=== PATIENT | male | born 1965 | race Caucasian/White ===

== ENCOUNTER 2018-03-09 10:00 | Inpatient (IN) | payer OTHER ==
[2018-03-09 10:58] VITALS: BMI 27.4
--- NOTE | 2018-03-09 12:18 | HP ---
CIWA Score - CIWA Score Nausea/Vomitin-Mild Nausea/No Vomiting (NAUSEA/DIARRHEA) Muscle Tremors: 4-Moderate,w/Arms Extend Anxiety: 4-Mod. Anxious/Guarded Agitation: 4-Moderately Restless Paroxysmal Sweats: 1-Minimal Palms Moist Orientation: 0-Oriented Tacttile Disturbances: 3-Moderate Itch/Numb/Burn (HX NEUROPATHY) Auditory Disturbances: 0-None Visual Disturbances: 1-Very Mild Sensitivity Headache: 0-None Present CIWA-Ar Total Score: 18 Admission ROS S - HPI Chief Complaint: ALCOHOL AND BENZO WITHDRAWAL SX Allergies/Adverse Reactions: Allergies Allergy/AdvReac Type Severity Reaction Status Date / Time No Known Allergies Allergy Verified 03/09/18 11:06 History of Present Illness: 52 Y/O H/MALE WITH A HX KLONOPIN, ALCOHOL AND COCAINE DEPENDENCE SEEKING DETOX TX. PT REPORTS HE HAS RX FOR KLONOPIN AND ALSO BUYS THEM ON THE STREETS. PT IS ON S.T.A. R.T.-MMTP WITH METHADONE 160 MG PO DAILY AND REPORTS LAST DOSED TODAY. DOSE NEEDS VERIFICATION. Exam Limitations: No Limitations - Ebola screening Have you traveled outside of the country in the last 21 days: No (N) Have you had contact with anyone from an Ebola affected area: No Have you been sick,other than usual withdrawal symptoms: No Do you have a fever: No - Review of Systems Constitutional: Loss of Appetite, Changes in sleep EENT: reports: Dental Problems (TEETH IN POOR REPAIR; MISSING TEETH) Respiratory: reports: Shortness of Breath (HX ASTHMA), Wheezing Cardiac: reports: Lightheadedness GI: reports: Constipated (OIC), Diarrhea, Nausea, Poor Fluid Intake, Vomiting : reports: No Symptoms Reported Musculoskeletal: reports: Back Pain, Joint Pain, Muscle Pain Integumentary: reports: No Symptoms Reported Neuro: reports: Headache, Numbness (LOWER EXTREMITIES-HX OF NEUROPATHY), Tingling, Dizziness Endocrine: reports: No Symptoms Reported Hematology: reports: No Symptoms Reported Psychiatric: reports: Orientated x3, Anxious, Depressed, other (INSOMNIA) Other Systems: Reviewed and Negative Patient History - Patient Medical History Hx Anemia: No Hx Asthma: Yes (MDI) Hx Chronic Obstructive Pulmonary Disease (COPD): No Hx Cardiac Disorders: No Hx Hypertension: No Hx Hypercholesterolemia: No HX Cerebrovascular Accident: No Hx Seizures: No Hx Diabetes: No Hx Gastrointestinal Disorders: No Hx Genitourinary Disorders: No Hx Sexually Transmitted Disorders: No (DENIES) Hx Renal Disease (ESRD): No Hx Thyroid Disease: No Hx Human Immunodeficiency Virus (HIV): No (NEGATIVE HX) Hx Hepatitis C: No (DENIES) Hx Depression: Yes Hx Suicide Attempt: Yes (Tried to overdose at age 12 yrs old; DENIES S/H/I) Hx Bipolar Disorder: No Hx Schizophrenia: No Other Medical History: ANXIETY/INSOMNIA HX - Patient Surgical History Past Surgical History: No Hx Neurologic Surgery: No Hx Cataract Extraction: No Hx Cardiac Surgery: No Hx Lung Surgery: No Hx Breast Surgery: No Hx Breast Biopsy: No Hx Abdominal Surgery: No Hx Appendectomy: No Hx Cholecystectomy: No Hx Genitourinary Surgery: No Hx Orthopedic Surgery: No Hx Hysterectomy: No Anesthesia Reaction: No - PPD History Previous Implant?: Yes Documented Results: Negative w/o proof Implanted On Prior [facility] Admission?: No Results: TBD PPD to be Administered?: Yes - Reproductive History Patient is a Female of Child Bearing Age (11 -55 yrs old): No (MALE) - Smoking Cessation Smoking history: Current every day smoker Have you smoked in the past 12 months: Yes Aproximately how many cigarettes per day: 60 Hx Chewing Tobacco Use: No Initiated information on smoking cessation: Yes 'Breaking Loose' booklet given: 03/09/18 - Substance & Tx. History Hx Alcohol Use: Yes (RUM) Hx Substance Use: Yes (KLONOPIN/CRACK) Hx Substance Use Treatment: No (FIRST TIME) - Substances Abused Alcohol Route: Oral Frequency: Daily Amount used: 2 PINTS RUM Age of first use: 11 Date of Last Use: 03/09/18 Benzodiazepine (Klonopin) Route: Oral Frequency: Daily Amount used: 4MG Age of first use: 11 Date of Last Use: 03/08/18 Crack Route: Smoking Frequency: Daily Amount used: $100-150 Age of first use: 12 Date of Last Use: 03/08/18 Family Disease History - Family Disease History Family Disease History: Diabetes: Grandparent (HTN) Admission Physical Exam [facility] - Vital Signs Vital Signs: Vital Signs - 24 hr 03/09/18 10:55 Temperature 99.3 F Pulse Rate 75 Respiratory 20 Rate Blood Pressure 173/94 - Physical General Appearance: Yes: Moderate Distress, Irritable, Anxious HEENTM: Yes: EOMI, Normocephalic, MONICA, Pharynx Normal Respiratory: Yes: Chest Non-Tender, Lungs Clear, Normal Breath Sounds, No Respiratory Distress Neck: Yes: No masses,lesions,Nodules, Supple, Trachea in good position Breast: Yes: Breast Exam Deferred Cardiology: Yes: Regular Rhythm, Regular Rate, S1, S2 Abdominal: Yes: Normal Bowel Sounds, Non Tender, Soft Genitourinary: Yes: Other (N/C) Back: Yes: Within Normal Limits Musculoskeletal: Yes: full range of Motion, Gait Steady Extremities: Yes: Normal Range of Motion, Non-Tender Neurological: Yes: lead pressman II-XII NML intact, Fully Oriented, Alert, Motor Strength 5/5 Integumentary: Yes: Dry, Warm Lymphatic: Yes: Within Normal Limits - Diagnostic (1) Alcohol dependence with uncomplicated withdrawal Current Visit: Yes Status: Acute (2) Methadone maintenance therapy patient Current Visit: Yes Status: Chronic (3) Asthma Current Visit: Yes Status: Chronic Qualifiers: Asthma severity: mild Asthma persistence: unspecified Asthma complication type: uncomplicated Qualified Code(s): J45.909 - Unspecified asthma, uncomplicated (4) History of peripheral neuropathy Current Visit: Yes Status: Chronic Cleared for Admission [facility] - Detox or Rehab [facility] Level of Care: Medically Managed Detox Regimen/Protocol: Valium S Breath Alcohol Content Breath Alcohol Content: 0 Urine Drug Screen - Results Drug Screen Negative: No Urine Drug Screen Results: JAZIEL-Cocaine, OPI-Opiates
[2018-03-09] MEDS ORDERED: MAG HYDROX/AL HYDROX/SIMETH 30 ML UNIT-DOSE CUP PO PRN (12:36)
[2018-03-09] MEDS ORDERED: guaiFENesin/D-METHORPHAN HB 10 ML UNIT-DOSE CUPS PO PRN (12:36)
[2018-03-09] MEDS ORDERED: LOPERAMIDE HCL 2 MG CAPSULE PO PRN (12:36)
[2018-03-09] MEDS ORDERED: MAGNESIUM HYDROX 2400MG/30ML ORAL SUSPENSION 30 ML CUP PO PRN (12:36)
[2018-03-09] MEDS ORDERED: ACETAMINOPHEN 325 MG TABLET (FP) PO PRN (12:36)
[2018-03-09] MEDS ORDERED: IBUPROFEN 400 MG TABLET (FP) PO PRN (12:36)
[2018-03-09] MEDS ORDERED: MAGNESIUM CITRATE 300 ML BOTTLE PO PRN (12:36)
[2018-03-09] MEDS ORDERED: P-EPHED 60MG/TRIPROLIDI 2.5MG TABLET PO PRN (12:36)
[2018-03-09] MEDS ORDERED: MENTHOL/PHENOL 1 EACH UD MM PRN (12:36)
[2018-03-09] MEDS: NICOTINE POLACRILEX 4 MG GUM BUC PRN ×4 (13:58→22:48)
[2018-03-09] MEDS ORDERED: diazePAM 5 MG TABLET PO ONE (14:00)
--- NOTE | 2018-03-09 14:20 | EKG ---
Test Reason : Blood Pressure : / mmHG Vent. Rate : 067 BPM Atrial Rate : 067 BPM P-R Int : 152 ms QRS Dur : 094 ms QT Int : 408 ms P-R-T Axes : 063 059 061 degrees QTc Int : 431 ms NORMAL SINUS RHYTHM MINIMAL VOLTAGE CRITERIA FOR LVH, MAY BE NORMAL VARIANT BORDERLINE ECG NO PREVIOUS ECGS AVAILABLE Confirmed by LINDY LAIRD MD ([id number]) on 03/09/2018 2:19:52 PM Referred By: Confirmed By:LINDY LAIRD MD
[2018-03-09] MEDS: NICOTINE 21 MG/24 HOURS TOPICAL PATCH TD SCH (15:04)
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
[2018-03-09] MEDS: diazePAM 5 MG TABLET PO PRN (18:30)
[2018-03-09] MEDS ORDERED: cloNIDine HCL 0.1 MG TABLET PO ONE (18:30)
[2018-03-09] MEDS: ALBUTEROL SO4 8 GM HFA INHALER IH SCH ×2 (18:32→22:46)
--- NOTE | 2018-03-09 19:43 | PN ---
S Progress Note Note: Vital Signs Temperature 98.4 F 03/09/18 19:25 Pulse Rate 84 03/09/18 19:25 Respiratory Rate 18 03/09/18 19:25 Blood Pressure 162/104 03/09/18 19:25 O2 Sat by Pulse Oximetry (%) asymptomatic elevated BP secondary to withdrawals one time dose clonidine 0.1 mg increase fluids continue to monitor
[2018-03-09] MEDS: LISINOPRIL 20 MG TABLET (FP) PO SCH (21:17)
[2018-03-09] MEDS ORDERED: MELATONIN 5 MG TABLETS PO PRN (22:00)
[2018-03-09] MEDS: diazePAM 5 MG TABLET PO SCH (22:46)
[2018-03-09] MEDS: QUEtiapine FUMARATE 300 MG TABLET PO SCH (22:46)
[2018-03-09] MEDS: THIAMINE HCL 100 MG TABLET (FP) PO SCH (22:46)
--- NOTE | 2018-03-09 23:41 | PN ---
S Progress Note Note: BP 162/104 asymptomatic Home medications reviewed. Patient on Lisinopril 20 mg QD, lisinopril order stat. increase fluids continue to monitor
[2018-03-10] MEDS: ALBUTEROL SO4 8 GM HFA INHALER IH SCH ×6 (06:20→22:58)
[2018-03-10] MEDS: diazePAM 5 MG TABLET PO SCH ×3 (06:20→22:33)
--- NOTE | 2018-03-10 09:58 | PN ---
S CIWA - CIWA Score Nausea/Vomitin-Mild Nausea/No Vomiting Muscle Tremors: 4-Moderate,w/Arms Extend Anxiety: 4-Mod. Anxious/Guarded Agitation: 4-Moderately Restless Paroxysmal Sweats: 1-Minimal Palms Moist Orientation: 0-Oriented Tacttile Disturbances: 1-Very Mild Itch/Numbness Auditory Disturbances: 0-None Visual Disturbances: 0-None Headache: 0-None Present CIWA-Ar Total Score: 15 BHS Progress Note (SOAP) Subjective: anxiety restlessness tremor sweat irritable methadone verified added to reconciliation Objective: 03/10/18 10:00 Vital Signs Temperature 97.3 F L 03/10/18 07:43 Pulse Rate 64 03/10/18 07:43 Respiratory Rate 18 03/10/18 07:43 Blood Pressure 160/91 03/10/18 07:43 O2 Sat by Pulse Oximetry (%) lab not available Assessment: 03/10/18 10:03 WITHDRAWAL SX HYPERTENSION DIABETES Plan: CONTINUE DETOX HGB A1C CLONIDINE 0.1 MG PRN
[2018-03-10] MEDS ORDERED: METHADONE HCL 40 MG DISPERSABLE TABLET PO ONE (10:00)
[2018-03-10 10:12] LABS: HEMATOCRIT 37.8 % (35.4-49); HEMOGLOBIN 12.5 GM/dL (11.7-16.9); MCH 27.4 pg (25.7-33.7); MEAN CELL VOLUME 83.1 fl (80-96); MEAN PLT VOLUME 8.8 fl (7.5-11.1); PLATELET COUNT 283 K/MM3 (134-434); RBC 4.55 M/mm3 (4.00-5.60); RDW 16.2 % (11.9-15.9); WHITE BLOOD COUNT 6.6 K/mm3 (4.0-10.0)
[2018-03-10] MEDS: PRENATAL VITAMINS W/ FOLIC ACID TABLET (FP) PO SCH (10:15)
[2018-03-10] MEDS: LISINOPRIL 20 MG TABLET (FP) PO SCH (10:15)
[2018-03-10] MEDS: diazePAM 5 MG TABLET PO PRN (10:15)
[2018-03-10] MEDS: NICOTINE POLACRILEX 4 MG GUM BUC PRN ×4 (10:16→22:33)
[2018-03-10] MEDS: NICOTINE 21 MG/24 HOURS TOPICAL PATCH TD SCH (10:18)
[2018-03-10 10:35] LABS: CHLORIDE 102 mmol/L (98-107); POTASSIUM 4.3 mmol/L (3.5-5.1); SODIUM 140 mmol/L (136-145)
[2018-03-10] MEDS ORDERED: INSULIN (NOVOLOG) ASPART 100 UNITS/ML 10ML VIAL ONE ×2 (10:59→16:46)
[2018-03-10] MEDS: cloNIDine HCL 0.1 MG TABLET PO PRN ×2 (11:00→22:32)
[2018-03-10] MEDS: INSULIN SLIDING SCALE (NOVOLOG) 1 VIAL SQ SCH ×3 (11:00→22:33)
[2018-03-10 11:07] LABS: ALBUMIN 3.5 g/dl (3.4-5.0); ALK PHOS 130 U/L (45-117); ANION GAP 8 (8-16); BILIRUBIN,TOTAL 0.3 mg/dL (0.2-1.0); BLOOD UREA NITROGEN 12 mg/dL (7-18); CO2 30 mmol/L (21-32); CREATININE 0.9 mg/dL (0.7-1.3); GLUCOSE,RANDOM 293 mg/dL (74-106); SGOT/AST 14 U/L (15-37); SGPT/ALT 19 U/L (12-78); TOT PROT 7.3 g/dl (6.4-8.2)
[2018-03-10 13:41] LABS: SICKLE CELL SCREEN NEGATIVE (NEGATIVE)
[2018-03-10] MEDS: QUEtiapine FUMARATE 300 MG TABLET PO SCH (22:32)
[2018-03-10] MEDS: THIAMINE HCL 100 MG TABLET (FP) PO SCH (22:59)
[2018-03-11] MEDS: METHADONE HCL 40 MG DISPERSABLE TABLET PO SCH (06:11)
[2018-03-11] MEDS ORDERED: INSULIN (NOVOLOG) ASPART 100 UNITS/ML 10ML VIAL ONE ×4 (06:15→21:33)
[2018-03-11] MEDS: NICOTINE POLACRILEX 4 MG GUM BUC PRN ×4 (06:16→22:15)
[2018-03-11] MEDS: ALBUTEROL SO4 8 GM HFA INHALER IH SCH ×2 (07:56→11:29)
[2018-03-11] MEDS: INSULIN SLIDING SCALE (NOVOLOG) 1 VIAL SQ SCH ×4 (07:57→22:14)
[2018-03-11] MEDS: LISINOPRIL 20 MG TABLET (FP) PO SCH (10:24)
[2018-03-11] MEDS: PRENATAL VITAMINS W/ FOLIC ACID TABLET (FP) PO SCH (10:24)
[2018-03-11] MEDS: diazePAM 5 MG TABLET PO SCH ×2 (10:24→22:13)
[2018-03-11] MEDS: NICOTINE 21 MG/24 HOURS TOPICAL PATCH TD SCH (10:26)
--- NOTE | 2018-03-11 11:15 | PN ---
S CIWA - CIWA Score Nausea/Vomitin Muscle Tremors: 2 Anxiety: 3 Agitation: 2 Paroxysmal Sweats: 2 Orientation: 0-Oriented Tacttile Disturbances: 1-Very Mild Itch/Numbness Auditory Disturbances: 0-None Visual Disturbances: 0-None Headache: 1-Very Mild CIWA-Ar Total Score: 13 S Progress Note (SOAP) Subjective: c/o of interrupted sleep , decrease appetite, body aches Objective: 03/11/18 11:16 Vital Signs Temperature 98.1 F 03/11/18 10:18 Pulse Rate 69 03/11/18 10:18 Respiratory Rate 18 03/11/18 10:18 Blood Pressure 142/81 03/11/18 10:18 O2 Sat by Pulse Oximetry (%) Laboratory Last Values WBC 6.6 K/mm3 (4.0-10.0) 03/10/18 06:00 RBC 4.55 M/mm3 (4.00-5.60) 03/10/18 06:00 Hgb 12.5 GM/dL (11.7-16.9) 03/10/18 06:00 Hct 37.8 % (35.4-49) 03/10/18 06:00 MCV 83.1 fl (80-96) 03/10/18 06:00 MCH 27.4 pg (25.7-33.7) 03/10/18 06:00 MCHC 33.0 g/dl (32.0-35.9) 03/10/18 06:00 RDW 16.2 % (11.9-15.9) H 03/10/18 06:00 Plt Count 283 K/MM3 (134-434) 03/10/18 06:00 MPV 8.8 fl (7.5-11.1) 03/10/18 06:00 Sickle Cell Screen Negative (NEGATIVE) 03/10/18 06:00 Sodium 140 mmol/L (136-145) 03/10/18 06:00 Potassium 4.3 mmol/L (3.5-5.1) 03/10/18 06:00 Chloride 102 mmol/L (98-107) 03/10/18 06:00 Carbon Dioxide 30 mmol/L (21-32) 03/10/18 06:00 Anion Gap 8 (8-16) 03/10/18 06:00 BUN 12 mg/dL (7-18) 03/10/18 06:00 Creatinine 0.9 mg/dL (0.7-1.3) 03/10/18 06:00 Creat Clearance w eGFR > 60 (>60) 03/10/18 06:00 POC Glucometer 343 UNITS (80-120) 03/11/18 06:10 Random Glucose 293 mg/dL (74-106) H 03/10/18 06:00 Calcium 9.0 mg/dL (8.5-10.1) 03/10/18 06:00 Total Bilirubin 0.3 mg/dL (0.2-1.0) 03/10/18 06:00 AST 14 U/L (15-37) L 03/10/18 06:00 ALT 19 U/L (12-78) 03/10/18 06:00 Alkaline Phosphatase 130 U/L (45-117) H 03/10/18 06:00 Total Protein 7.3 g/dl (6.4-8.2) 03/10/18 06:00 Albumin 3.5 g/dl (3.4-5.0) 03/10/18 06:00 RPR Titer Nonreactive (NONREACTIVE) 03/10/18 06:00 AOx3 no distress no adventitious breath sounds ambulating in the unit independently with no difficulty skin intact, + diaphoresis, no erythema - withdrawal sx - DM Plan : Increase fluids sliding scale adjusted additional labs pending Patient was educated on the risk of elevated BGM and importance of abstinence, medication adherence and follow up with medical provider. Patient to follow up with PCP upon discharge.
[2018-03-11] MEDS ORDERED: ALBUTEROL SO4 8 GM HFA INHALER IH PRN (11:32)
--- NOTE | 2018-03-11 12:10 | PN ---
[facility] Progress Note Note: Psychiatric nurse practitioner note: Pt. able to tolerate Seroquel 300mg qhs. No sedation note. Pt is currently prescribed Seroquel 400mg qhs. Seroquel to be increased to 400mg. Verbal consent given.
[2018-03-11] MEDS: diazePAM 5 MG TABLET PO PRN (14:20)
[2018-03-11 14:56] LABS: URINE APPEARANCE CLEAR; URINE BILIRUBIN NEGATIVE (<2.0 mg/dL); URINE COLOR LTYELLOW; URINE GLUCOSE (UA) 3+ (NEGATIVE); URINE KETONE NEGATIVE (NEGATIVE); URINE LEUK ESTERASE NEGATIVE (NEGATIVE); URINE NITRITE NEGATIVE (NEGATIVE); URINE PROTEIN NEGATIVE (NEGATIVE); URINE UROBILINOGEN NEGATIVE mg/dL (0.2-1.0)
[2018-03-11] MEDS: cloNIDine HCL 0.1 MG TABLET PO PRN ×2 (15:48→22:13)
[2018-03-11] MEDS: QUEtiapine FUMARATE 400 MG TABLET PO SCH (22:13)
[2018-03-11] MEDS: THIAMINE HCL 100 MG TABLET (FP) PO SCH (22:13)
[2018-03-12] MEDS: METHADONE HCL 40 MG DISPERSABLE TABLET PO SCH (06:06)
[2018-03-12] MEDS: NICOTINE POLACRILEX 4 MG GUM BUC PRN ×3 (06:07→12:36)
[2018-03-12] MEDS ORDERED: INSULIN (NOVOLOG) ASPART 100 UNITS/ML 10ML VIAL ONE ×4 (07:35→22:22)
[2018-03-12] MEDS: INSULIN SLIDING SCALE (NOVOLOG) 1 VIAL SQ SCH ×4 (08:18→22:19)
[2018-03-12] MEDS: diazePAM 5 MG TABLET PO SCH ×2 (10:29→22:23)
[2018-03-12] MEDS: PRENATAL VITAMINS W/ FOLIC ACID TABLET (FP) PO SCH (10:29)
[2018-03-12] MEDS: NICOTINE 21 MG/24 HOURS TOPICAL PATCH TD SCH (10:30)
[2018-03-12] MEDS: LISINOPRIL 20 MG TABLET (FP) PO SCH (10:30)
[2018-03-12] MEDS: cloNIDine HCL 0.1 MG TABLET PO PRN (17:53)
[2018-03-12] MEDS: QUEtiapine FUMARATE 400 MG TABLET PO SCH (22:23)
[2018-03-12] MEDS: THIAMINE HCL 100 MG TABLET (FP) PO SCH (22:23)
--- NOTE | 2018-03-12 22:36 | PN ---
[facility] Progress Note (SOAP) Subjective: Shakes sleep disturbance sweats Objective: 03/12/18 A & O x 3 in day room sitting Vital Signs Vital Signs Temperature 96.4 F L 03/12/18 22:13 Pulse Rate 66 03/12/18 22:13 Respiratory Rate 18 03/12/18 22:13 Blood Pressure 183/91 03/12/18 22:13 O2 Sat by Pulse Oximetry (%) Assessment: 03/12/18 21:01 withdrawal sx Plan: continue detox
[2018-03-13] MEDS: METHADONE HCL 40 MG DISPERSABLE TABLET PO SCH (06:32)
[2018-03-13] MEDS ORDERED: INSULIN (NOVOLOG) ASPART 100 UNITS/ML 10ML VIAL ONE (06:35)
[2018-03-13] MEDS: NICOTINE POLACRILEX 4 MG GUM BUC PRN ×2 (06:36→09:21)
[2018-03-13] MEDS: INSULIN SLIDING SCALE (NOVOLOG) 1 VIAL SQ SCH (08:06)
--- NOTE | 2018-03-13 08:42 | DS ---
[facility] Detox Discharge Summary Admission Date: 03/09/18 Discharge Date: 03/13/18 - History Present History: Alcohol Dependence, Sedative Dependence Additional Comments: 52 years old male admitted on 03/09/18 for alcohol and benzo withdrawal sx completed alcohol /benzo detox regimen tolerated well denies benzo and alcohol withdrawal sx alert oriented x 3 no acute distress afterare [facility] stated has enough medications at home wants to follow up with [facility] for medical mental and addiction issues - Physical Exam Results Vital Signs: Vital Signs Temperature 97.7 F 03/13/18 06:00 Pulse Rate 57 L 03/13/18 07:15 Respiratory Rate 18 03/13/18 07:15 Blood Pressure 152/82 03/13/18 07:15 O2 Sat by Pulse Oximetry (%) Pertinent Admission Physical Exam Findings: alcohol and benzo withdrawal sx Vital Signs Temperature 98.5 F 03/13/18 09:22 Pulse Rate 91 H 03/13/18 09:22 Respiratory Rate 18 03/13/18 09:22 Blood Pressure 160/95 03/13/18 09:22 O2 Sat by Pulse Oximetry (%) Laboratory Last Values WBC 6.6 K/mm3 (4.0-10.0) 03/10/18 06:00 RBC 4.55 M/mm3 (4.00-5.60) 03/10/18 06:00 Hgb 12.5 GM/dL (11.7-16.9) 03/10/18 06:00 Hct 37.8 % (35.4-49) 03/10/18 06:00 MCV 83.1 fl (80-96) 03/10/18 06:00 MCH 27.4 pg (25.7-33.7) 03/10/18 06:00 MCHC 33.0 g/dl (32.0-35.9) 03/10/18 06:00 RDW 16.2 % (11.9-15.9) H 03/10/18 06:00 Plt Count 283 K/MM3 (134-434) 03/10/18 06:00 MPV 8.8 fl (7.5-11.1) 03/10/18 06:00 Sickle Cell Screen Negative (NEGATIVE) 03/10/18 06:00 Sodium 140 mmol/L (136-145) 03/10/18 06:00 Potassium 4.3 mmol/L (3.5-5.1) 03/10/18 06:00 Chloride 102 mmol/L (98-107) 03/10/18 06:00 Carbon Dioxide 30 mmol/L (21-32) 03/10/18 06:00 Anion Gap 8 (8-16) 03/10/18 06:00 BUN 12 mg/dL (7-18) 03/10/18 06:00 Creatinine 0.9 mg/dL (0.7-1.3) 03/10/18 06:00 Creat Clearance w eGFR > 60 (>60) 03/10/18 06:00 POC Glucometer 212 UNITS (80-120) 03/13/18 06:32 Random Glucose 293 mg/dL (74-106) H 03/10/18 06:00 Hemoglobin A1c % 10.7 % (4.8-6.0) H 03/10/18 06:00 Calcium 9.0 mg/dL (8.5-10.1) 03/10/18 06:00 Total Bilirubin 0.3 mg/dL (0.2-1.0) 03/10/18 06:00 AST 14 U/L (15-37) L 03/10/18 06:00 ALT 19 U/L (12-78) 03/10/18 06:00 Alkaline Phosphatase 130 U/L (45-117) H 03/10/18 06:00 Total Protein 7.3 g/dl (6.4-8.2) 03/10/18 06:00 Albumin 3.5 g/dl (3.4-5.0) 03/10/18 06:00 Urine Color Ltyellow 03/11/18 10:15 Urine Appearance Clear 03/11/18 10:15 Urine pH 5.0 (5.0-8.0) 03/11/18 10:15 Ur Specific [place] 1.018 (1.001-1.035) 03/11/18 10:15 Urine Protein Negative (NEGATIVE) 03/11/18 10:15 Urine Glucose (UA) 3+ (NEGATIVE) H 03/11/18 10:15 Urine Ketones Negative (NEGATIVE) 03/11/18 10:15 Urine Blood Negative (NEGATIVE) 03/11/18 10:15 Urine Nitrite Negative (NEGATIVE) 03/11/18 10:15 Urine Bilirubin Negative (<2.0 mg/dL) 03/11/18 10:15 Urine Urobilinogen Negative mg/dL (0.2-1.0) 03/11/18 10:15 Ur Leukocyte Esterase Negative (NEGATIVE) 03/11/18 10:15 RPR Titer Nonreactive (NONREACTIVE) 03/10/18 06:00 lab noted - Treatment Hospital Course: Detox Protocol Followed, Detoxed Safely, Responded well, Discharged Condition Good, Rehab Referral Accepted Patient has Accepted a Rehab Referral to: [facility] - Medication Discharge Medications: Ambulatory Orders Albuterol Sulfate Inhaler - [Ventolin HFA Inhaler -] 2 inh PO Q4H 03/09/18 Lisinopril 03/09/18 Quetiapine Fumarate [Seroquel -] 400 mg PO HS 03/09/18 Methadone [Dolophine -] 160 mg PO DAILY@0600 03/10/18 - Diagnosis (1) Alcohol dependence with uncomplicated withdrawal Status: Acute (2) Diabetes mellitus, type II, insulin dependent Status: Chronic (3) Hypertension Status: Chronic Qualifiers: Hypertension type: essential hypertension Qualified Code(s): I10 - Essential (primary) hypertension (4) Nicotine dependence Status: Acute Qualifiers: Nicotine product type: cigarettes Substance use status: in withdrawal Qualified Code(s): F17.213 - Nicotine dependence, cigarettes, with withdrawal (5) Asthma Status: Chronic Qualifiers: Asthma severity: mild Asthma persistence: unspecified Asthma complication type: uncomplicated Qualified Code(s): J45.909 - Unspecified asthma, uncomplicated (6) Methadone maintenance therapy patient Status: Chronic - AMA Did Patient Leave Against Medical Advice: No
[2018-03-13] MEDS: LISINOPRIL 20 MG TABLET (FP) PO SCH (09:20)
[2018-03-13] MEDS: PRENATAL VITAMINS W/ FOLIC ACID TABLET (FP) PO SCH (09:20)
[2018-03-13 09:23] VITALS: BP 160/95; PULSE 91; TEMP 98.5
[2018-03-13] MEDS ORDERED: diazePAM 5 MG TABLET PO SCH (10:00)
== END 2018-03-13 09:22 | disposition home or self-care (01) | DRG 773 ==
LOC: YASAS 10:00 → Y6N 12:54
PROVIDERS: ADMIT Surgery; ATTEND Surgery
PROC: HZ2ZZZZ Detoxification Services for Substance Abuse Treatment (ICD-10-PCS; principal; 2018-03-09)
DX: F11.20 Opioid dependence, uncomplicated (principal); F10.230 Alcohol dependence with withdrawal, uncomplicated; F13.230 Sedative, hypnotic or anxiolytic dependence with withdrawal, uncomplicated; F17.210 Nicotine dependence, cigarettes, uncomplicated; F31.9 Bipolar disorder, unspecified; F19.24 Other psychoactive substance dependence with psychoactive substance-induced mood disorder; I10 Essential (primary) hypertension; E11.9 Type 2 diabetes mellitus without complications; J45.909 Unspecified asthma, uncomplicated; G62.9 Polyneuropathy, unspecified; Z91.5 Personal history of self-harm; Z79.4 Long term (current) use of insulin
CPT/HCPCS: 36415; 80053; 81003; 82962; 83036; 85027; 85660; 86593; 93005; 93010; J0735

== ENCOUNTER 2021-02-14 14:38 | Inpatient (IN) | payer OTHER ==
[2021-02-14 17:26] LABS: BASO % 0.4 % (0-2.0); EOS % 2.6 % (0-4.5); HEMATOCRIT 19.8 % (35.4-49); LYMPH % 21.4 % (8-40); MCH 23.6 pg (25.7-33.7); MCHC 31.8 g/dl (32.0-35.9); MEAN CELL VOLUME 74.3 fl (80-96); MEAN PLT VOLUME 7.4 fl (7.5-11.1); MONO % 6.5 % (3.8-10.2); NEUT % 69.1 % (42.8-82.8); PLATELET COUNT 166 10^3/uL (134-434); RBC 2.66 M/mm3 (4.00-5.60); RDW 22.7 % (11.9-15.9); WHITE BLOOD COUNT 2.4 K/mm3 (4.0-10.0)
[2021-02-14 17:27] LABS: HEMOGLOBIN 6.3 GM/dL (11.7-16.9)
[2021-02-14 17:48] LABS: BLOOD UREA NITROGEN 13.7 mg/dL (7-18); CALCIUM 8.8 mg/dL (8.5-10.1)
[2021-02-14 17:51] LABS: CREATININE 0.9 mg/dL (0.55-1.3)
[2021-02-14 17:53] LABS: BILIRUBIN,TOTAL 0.3 mg/dL (0.2-1); TOT PROT 7.4 g/dl (6.4-8.2)
[2021-02-14 18:14] LABS: ERYTHROCYTE SEDIMENTATION RATE 115 mm/hr (0-20)
[2021-02-14 18:26] LABS: ANISOCYTOSIS 3+; MACROCYTOSIS 0; PLATELET ESTIMATE NORMAL; TARGET CELLS 1+
[2021-02-14] MEDS ORDERED: PIPERACILLIN/TAZOB 3.375 GM 3.375 GM in DEXTROSE 5%-WATER - 50 ML IVPB ONE (18:41)
[2021-02-14] MEDS ORDERED: VANCOMYCIN 1 GM PREMIX - 1 GM/200 ML BAG IVPB ONE (18:41)
[2021-02-14] MEDS ORDERED: ACETAMINOPHEN 500 MG TABLET (FP) PO ONE (18:41)
[2021-02-14] MEDS ORDERED: PIPERACILLIN/TAZOB 3.375 GM 3.375 GM/50 ML BAG IVPB ONE (19:10)
[2021-02-14] MEDS ORDERED: ACETAMINOPHEN 325 MG TABLET (FP) ONE (19:10)
[2021-02-14] MEDS ORDERED: VANCOMYCIN 1 GRAM (PRE-DOCKED) 1,000 MG/250 ML BAG IVPB ONE (19:10)
[2021-02-14] MEDS ORDERED: PERMETHRIN 5% TOPICAL CREAM 60 GM TUBE TP ONE (20:36)
[2021-02-14] MEDS ORDERED: PIPERACILLIN/TAZOB 2.25 GM 2.25 GM in DEXTROSE 5%-WATER - 50 ML IVPB SCH (21:00)
[2021-02-15] MEDS ORDERED: ACETAMINOPHEN INJECTION 100 ML IVPB ONE (01:18)
[2021-02-15] MEDS ORDERED: PIPERACILLIN/TAZOBACTAM 2.25 GM VIAL IVPB ONE ×3 (01:32→14:27)
[2021-02-15] MEDS ORDERED: DEXTROSE 5%-WATER - 50 ML IVPB ONE ×3 (01:33→14:27)
[2021-02-15] MEDS ORDERED: ACETAMINOPHEN 1000 MG/100 ML VIAL (NON FORMULARY) IVPB ONE (01:39)
[2021-02-15 02:08] VITALS: BMI 24.3
[2021-02-15] MEDS: PIPERACILLIN/TAZOB 2.25 GM 2.25 GM in DEXTROSE 5%-WATER - 50 ML IVPB SCH ×3 (02:10→15:02)
[2021-02-15 08:11] LABS: BASO % 0.2 % (0-2.0); EOS % 2.7 % (0-4.5); HEMATOCRIT 21.4 % (35.4-49); LYMPH % 19.7 % (8-40); MCH 24.2 pg (25.7-33.7); MCHC 32.4 g/dl (32.0-35.9); MEAN CELL VOLUME 74.8 fl (80-96); MEAN PLT VOLUME 7.8 fl (7.5-11.1); MONO % 6.6 % (3.8-10.2); NEUT % 70.8 % (42.8-82.8); PLATELET COUNT 154 10^3/uL (134-434); RBC 2.87 M/mm3 (4.00-5.60); RDW 21.2 % (11.9-15.9); WHITE BLOOD COUNT 3.4 K/mm3 (4.0-10.0)
[2021-02-15 08:16] LABS: HEMOGLOBIN 6.9 GM/dL (11.7-16.9)
[2021-02-15 08:30] LABS: CALCIUM 8.4 mg/dL (8.5-10.1)
[2021-02-15 08:31] LABS: ALBUMIN 2.6 g/dl (3.4-5.0); BLOOD UREA NITROGEN 12.1 mg/dL (7-18); MAGNESIUM 1.7 mg/dL (1.8-2.4)
[2021-02-15 08:34] LABS: CREATININE 0.8 mg/dL (0.55-1.3); PHOSPHOROUS 2.7 mg/dL (2.5-4.9)
[2021-02-15 08:35] LABS: BILIRUBIN,TOTAL 0.7 mg/dL (0.2-1)
[2021-02-15 08:36] LABS: TOT PROT 6.4 g/dl (6.4-8.2)
[2021-02-15] MEDS: ENOXAPARIN NA (PORCINE) 40 MG/0.4 ML DISP.SYRIN SQ SCH (09:00)
[2021-02-15] MEDS ORDERED: clonazePAM 2 MG TABLET PO PRN (12:23)
[2021-02-15] MEDS ORDERED: METHADONE HCL 40 MG DISPERSABLE TABLET PO SCH (12:30)
[2021-02-15 12:42] LABS: URINE APPEARANCE CLEAR; URINE BILIRUBIN NEGATIVE (NEGATIVE); URINE COLOR YELLOW; URINE GLUCOSE (UA) NEGATIVE (NEGATIVE); URINE KETONE NEGATIVE (NEGATIVE); URINE LEUK ESTERASE NEGATIVE (NEGATIVE); URINE NITRITE NEGATIVE (NEGATIVE); URINE PROTEIN NEGATIVE (NEGATIVE)
[2021-02-15] MEDS: LISINOPRIL 20 MG TABLET PO SCH (12:55)
[2021-02-15] MEDS: PERMETHRIN 5% TOPICAL CREAM 60 GM TUBE TP SCH ×2 (12:56→21:50)
[2021-02-15] MEDS ORDERED: ALBUTEROL SO4 2.5/IPRATROPIUM 0.5 INH SOL 3 ML VIAL.NEB. NEB PRN (13:34)
[2021-02-15] MEDS ORDERED: METHADONE HCL 40 MG DISPERSABLE TABLET PO ONE (13:48)
[2021-02-15] MEDS: BICTEGRAV/EMTRICIT/TENOFOV (BIKTARVY) 50-200-25 MG TABLET PO SCH (15:20)
[2021-02-15] MEDS ORDERED: INSULIN (NOVOLOG) ASPART 100 UNITS/ML 10ML VIAL ONE (16:11)
[2021-02-15] MEDS: INSULIN SLIDING SCALE (NOVOLOG) 1 VIAL SQ SCH ×2 (16:23→21:50)
[2021-02-15] MEDS: CEFAZOLIN 2 GM/D5W 2 GM/50 ML ML IVPB SCH (17:55)
[2021-02-15] MEDS: ACETAMINOPHEN 325 MG TABLET (FP) PO PRN (17:59)
[2021-02-15 18:32] LABS: HEMATOCRIT 23.2 % (35.4-49); HEMOGLOBIN 7.7 GM/dL (11.7-16.9); MCH 25.4 pg (25.7-33.7); MCHC 33.1 g/dl (32.0-35.9); MEAN CELL VOLUME 76.7 fl (80-96); MEAN PLT VOLUME 7.7 fl (7.5-11.1); PLATELET COUNT 145 10^3/uL (134-434); RBC 3.02 M/mm3 (4.00-5.60); RDW 21.5 % (11.9-15.9); WHITE BLOOD COUNT 3.6 K/mm3 (4.0-10.0)
[2021-02-15] MEDS: QUEtiapine FUMARATE 200 MG TABLET PO SCH (21:49)
[2021-02-15] MEDS: cloNIDine HCL 0.1 MG TABLET PO SCH (21:49)
[2021-02-16] MEDS: CEFAZOLIN 2 GM/D5W 2 GM/50 ML ML IVPB SCH ×3 (01:32→17:00)
[2021-02-16] MEDS: INSULIN SLIDING SCALE (NOVOLOG) 1 VIAL SQ SCH ×4 (06:13→21:41)
[2021-02-16] MEDS: ENOXAPARIN NA (PORCINE) 40 MG/0.4 ML DISP.SYRIN SQ SCH (09:37)
[2021-02-16] MEDS: cloNIDine HCL 0.1 MG TABLET PO SCH ×2 (09:38→21:42)
[2021-02-16] MEDS: BICTEGRAV/EMTRICIT/TENOFOV (BIKTARVY) 50-200-25 MG TABLET PO SCH (09:38)
[2021-02-16] MEDS: LISINOPRIL 20 MG TABLET PO SCH (09:38)
[2021-02-16] MEDS: PERMETHRIN 5% TOPICAL CREAM 60 GM TUBE TP SCH (09:40)
[2021-02-16 15:30] LABS: BASO % 0.3 % (0-2.0); EOS % 4.1 % (0-4.5); HEMATOCRIT 24.4 % (35.4-49); HEMOGLOBIN 7.8 GM/dL (11.7-16.9); MCH 24.7 pg (25.7-33.7); MCHC 32.1 g/dl (32.0-35.9); MEAN CELL VOLUME 76.9 fl (80-96); MEAN PLT VOLUME 8.3 fl (7.5-11.1); MONO % 10.3 % (3.8-10.2); NEUT % 57.3 % (42.8-82.8); PLATELET COUNT 162 10^3/uL (134-434); RBC 3.18 M/mm3 (4.00-5.60); RDW 21.9 % (11.9-15.9); RETICULOCYTES 1.13 % (0.5-1.5); WHITE BLOOD COUNT 3.5 K/mm3 (4.0-10.0)
[2021-02-16 15:55] LABS: CALCIUM 8.9 mg/dL (8.5-10.1)
[2021-02-16 15:56] LABS: ALBUMIN 2.5 g/dl (3.4-5.0); BLOOD UREA NITROGEN 9.8 mg/dL (7-18); MAGNESIUM 1.9 mg/dL (1.8-2.4)
[2021-02-16 15:59] LABS: CREATININE 0.9 mg/dL (0.55-1.3); PHOSPHOROUS 3.4 mg/dL (2.5-4.9)
[2021-02-16 16:00] LABS: BILIRUBIN,TOTAL 0.3 mg/dL (0.2-1); TOT PROT 6.4 g/dl (6.4-8.2)
[2021-02-16 16:30] LABS: ANISOCYTOSIS 3+; MACROCYTOSIS 0; OVALOCYTE 1+; PLATELET ESTIMATE DECREASED; TARGET CELLS 1+
[2021-02-16] MEDS ORDERED: METHADONE HCL 40 MG DISPERSABLE TABLET PO ONE (16:30)
[2021-02-16] MEDS: DOCUSATE SODIUM 100 MG CAPSULE (FP) PO PRN (16:56)
[2021-02-16] MEDS: QUEtiapine FUMARATE 200 MG TABLET PO SCH (21:41)
[2021-02-17] MEDS: CEFAZOLIN 2 GM/D5W 2 GM/50 ML ML IVPB SCH ×3 (01:18→17:34)
[2021-02-17] MEDS: INSULIN SLIDING SCALE (NOVOLOG) 1 VIAL SQ SCH ×4 (06:22→22:34)
[2021-02-17] MEDS ORDERED: METHADONE HCL 40 MG DISPERSABLE TABLET PO SCH (09:49)
[2021-02-17] MEDS: ENOXAPARIN NA (PORCINE) 40 MG/0.4 ML DISP.SYRIN SQ SCH (11:53)
[2021-02-17] MEDS: METHADONE HCL 40 MG DISPERSABLE TABLET PO SCH (11:53)
[2021-02-17] MEDS: LISINOPRIL 20 MG TABLET PO SCH (11:54)
[2021-02-17] MEDS: BICTEGRAV/EMTRICIT/TENOFOV (BIKTARVY) 50-200-25 MG TABLET PO SCH (11:54)
[2021-02-17] MEDS: cloNIDine HCL 0.1 MG TABLET PO SCH ×2 (11:54→22:33)
[2021-02-17] MEDS: QUEtiapine FUMARATE 200 MG TABLET PO SCH (22:34)
[2021-02-18] MEDS: CEFAZOLIN 2 GM/D5W 2 GM/50 ML ML IVPB SCH ×3 (01:42→17:12)
[2021-02-18] MEDS: METHADONE HCL 40 MG DISPERSABLE TABLET PO SCH (06:36)
[2021-02-18] MEDS: INSULIN SLIDING SCALE (NOVOLOG) 1 VIAL SQ SCH ×4 (07:17→22:49)
[2021-02-18 07:31] LABS: BASO % 0.8 % (0-2.0); EOS % 5.5 % (0-4.5); HEMATOCRIT 24.2 % (35.4-49); HEMOGLOBIN 7.9 GM/dL (11.7-16.9); LYMPH % 28.7 % (8-40); MCH 25.2 pg (25.7-33.7); MCHC 32.6 g/dl (32.0-35.9); MEAN CELL VOLUME 77.5 fl (80-96); MEAN PLT VOLUME 7.8 fl (7.5-11.1); MONO % 12.1 % (3.8-10.2); NEUT % 52.9 % (42.8-82.8); PLATELET COUNT 159 10^3/uL (134-434); RBC 3.12 M/mm3 (4.00-5.60); RDW 22.6 % (11.9-15.9); WHITE BLOOD COUNT 3.3 K/mm3 (4.0-10.0)
[2021-02-18 08:12] LABS: ALBUMIN 2.6 g/dl (3.4-5.0); BLOOD UREA NITROGEN 10.6 mg/dL (7-18); CALCIUM 8.6 mg/dL (8.5-10.1)
[2021-02-18 08:15] LABS: CREATININE 0.9 mg/dL (0.55-1.3)
[2021-02-18 08:17] LABS: BILIRUBIN,TOTAL 0.5 mg/dL (0.2-1); TOT PROT 6.5 g/dl (6.4-8.2)
[2021-02-18 09:10] LABS: ANISOCYTOSIS 0; MACROCYTOSIS 0; PLATELET ESTIMATE DECREASED
[2021-02-18] MEDS: ENOXAPARIN NA (PORCINE) 40 MG/0.4 ML DISP.SYRIN SQ SCH (09:11)
[2021-02-18] MEDS: BICTEGRAV/EMTRICIT/TENOFOV (BIKTARVY) 50-200-25 MG TABLET PO SCH (09:11)
[2021-02-18] MEDS: LISINOPRIL 20 MG TABLET PO SCH (09:12)
[2021-02-18] MEDS: cloNIDine HCL 0.1 MG TABLET PO SCH ×2 (09:12→22:46)
[2021-02-18] MEDS ORDERED: LACTULOSE 20 GM/30 ML UDC (FOR ORAL USE ONLY) PO PRN (13:17)
[2021-02-18] MEDS: POLYETHYLENE GLYCOL (HEALTHYLAX) 3350 17 GM PACKET PO SCH (16:38)
[2021-02-18] MEDS: DOCUSATE SODIUM 100 MG CAPSULE (FP) PO PRN (16:40)
[2021-02-18] MEDS ORDERED: PT OWN MED DRAWER 7, Y5N ONE (22:39)
[2021-02-18] MEDS: QUEtiapine FUMARATE 200 MG TABLET PO SCH (22:46)
[2021-02-19] MEDS ORDERED: clonazePAM 0.5 MG TABLET PO ONE (00:01)
[2021-02-19] MEDS: CEFAZOLIN 2 GM/D5W 2 GM/50 ML ML IVPB SCH ×3 (01:29→16:59)
[2021-02-19] MEDS: METHADONE HCL 40 MG DISPERSABLE TABLET PO SCH (07:00)
[2021-02-19] MEDS: INSULIN SLIDING SCALE (NOVOLOG) 1 VIAL SQ SCH ×4 (07:04→21:53)
[2021-02-19 07:48] LABS: BASO % 0.7 % (0-2.0); EOS % 4.9 % (0-4.5); HEMATOCRIT 24.8 % (35.4-49); LYMPH % 25.7 % (8-40); MCH 25.4 pg (25.7-33.7); MCHC 32.4 g/dl (32.0-35.9); MEAN CELL VOLUME 78.1 fl (80-96); MEAN PLT VOLUME 7.4 fl (7.5-11.1); MONO % 10.3 % (3.8-10.2); NEUT % 58.4 % (42.8-82.8); PLATELET COUNT 160 10^3/uL (134-434); RBC 3.17 M/mm3 (4.00-5.60); RDW 22.5 % (11.9-15.9); WHITE BLOOD COUNT 3.5 K/mm3 (4.0-10.0)
[2021-02-19 08:17] LABS: CALCIUM 8.4 mg/dL (8.5-10.1)
[2021-02-19 08:18] LABS: ALBUMIN 2.7 g/dl (3.4-5.0); BLOOD UREA NITROGEN 15.3 mg/dL (7-18); MAGNESIUM 1.9 mg/dL (1.8-2.4)
[2021-02-19 08:19] LABS: CREATININE 0.9 mg/dL (0.55-1.3)
[2021-02-19 08:21] LABS: PHOSPHOROUS 3.8 mg/dL (2.5-4.9)
[2021-02-19 08:22] LABS: BILIRUBIN,TOTAL 0.7 mg/dL (0.2-1); TOT PROT 6.7 g/dl (6.4-8.2)
[2021-02-19 09:24] LABS: ANISOCYTOSIS 2+; MACROCYTOSIS 1+; PLATELET ESTIMATE DECREASED; TEAR DROP CELLS 1+
[2021-02-19] MEDS: LISINOPRIL 20 MG TABLET PO SCH (10:36)
[2021-02-19] MEDS: POLYETHYLENE GLYCOL (HEALTHYLAX) 3350 17 GM PACKET PO SCH (10:36)
[2021-02-19] MEDS: BICTEGRAV/EMTRICIT/TENOFOV (BIKTARVY) 50-200-25 MG TABLET PO SCH (10:36)
[2021-02-19] MEDS: SULFAMETHOXAZOLE/TRIMETHOPRIM 800MG/160MG D.S. TABLET PO SCH (10:36)
[2021-02-19] MEDS: ENOXAPARIN NA (PORCINE) 40 MG/0.4 ML DISP.SYRIN SQ SCH (10:37)
[2021-02-19] MEDS: cloNIDine HCL 0.1 MG TABLET PO SCH ×2 (10:37→21:50)
[2021-02-19] MEDS ORDERED: INSULIN (NOVOLOG) ASPART 100 UNITS/ML 10ML VIAL ONE (10:50)
[2021-02-19] MEDS: QUEtiapine FUMARATE 200 MG TABLET PO SCH (21:49)
[2021-02-20] MEDS: CEFAZOLIN 2 GM/D5W 2 GM/50 ML ML IVPB SCH ×3 (02:36→17:32)
[2021-02-20] MEDS: METHADONE HCL 40 MG DISPERSABLE TABLET PO SCH (06:24)
[2021-02-20] MEDS: INSULIN SLIDING SCALE (NOVOLOG) 1 VIAL SQ SCH ×4 (06:30→22:13)
[2021-02-20 08:12] LABS: BASO % 0.4 % (0-2.0); EOS % 5.1 % (0-4.5); HEMATOCRIT 24.8 % (35.4-49); HEMOGLOBIN 7.9 GM/dL (11.7-16.9); LYMPH % 28.5 % (8-40); MCH 25.1 pg (25.7-33.7); MCHC 31.9 g/dl (32.0-35.9); MEAN CELL VOLUME 78.5 fl (80-96); MEAN PLT VOLUME 7.5 fl (7.5-11.1); MONO % 9.6 % (3.8-10.2); NEUT % 56.4 % (42.8-82.8); PLATELET COUNT 147 10^3/uL (134-434); RBC 3.16 M/mm3 (4.00-5.60); RDW 22.6 % (11.9-15.9); WHITE BLOOD COUNT 3.9 K/mm3 (4.0-10.0)
[2021-02-20 08:23] LABS: CALCIUM 8.4 mg/dL (8.5-10.1)
[2021-02-20 08:24] LABS: ALBUMIN 2.6 g/dl (3.4-5.0); BLOOD UREA NITROGEN 17.5 mg/dL (7-18); MAGNESIUM 1.6 mg/dL (1.8-2.4)
[2021-02-20 08:29] LABS: BILIRUBIN,TOTAL 0.6 mg/dL (0.2-1); TOT PROT 6.6 g/dl (6.4-8.2)
[2021-02-20] MEDS: cloNIDine HCL 0.1 MG TABLET PO SCH ×2 (10:47→22:06)
[2021-02-20] MEDS: LISINOPRIL 20 MG TABLET PO SCH (10:48)
[2021-02-20] MEDS: DOCUSATE SODIUM 100 MG CAPSULE (FP) PO PRN (10:48)
[2021-02-20] MEDS: ACETAMINOPHEN 325 MG TABLET (FP) PO PRN (10:48)
[2021-02-20] MEDS: ENOXAPARIN NA (PORCINE) 40 MG/0.4 ML DISP.SYRIN SQ SCH (10:48)
[2021-02-20] MEDS: BICTEGRAV/EMTRICIT/TENOFOV (BIKTARVY) 50-200-25 MG TABLET PO SCH (10:49)
[2021-02-20] MEDS: POLYETHYLENE GLYCOL (HEALTHYLAX) 3350 17 GM PACKET PO SCH (10:49)
[2021-02-20 14:20] LABS: ANISOCYTOSIS 1+; MACROCYTOSIS 1+; PLATELET ESTIMATE DECREASED
[2021-02-20] MEDS: QUEtiapine FUMARATE 200 MG TABLET PO SCH (22:17)
[2021-02-21] MEDS: CEFAZOLIN 2 GM/D5W 2 GM/50 ML ML IVPB SCH ×2 (02:11→10:43)
[2021-02-21] MEDS: METHADONE HCL 40 MG DISPERSABLE TABLET PO SCH (06:48)
[2021-02-21] MEDS: INSULIN SLIDING SCALE (NOVOLOG) 1 VIAL SQ SCH ×2 (07:33→10:55)
[2021-02-21 08:08] LABS: BASO % 0.3 % (0-2.0); EOS % 5.9 % (0-4.5); HEMATOCRIT 25.2 % (35.4-49); LYMPH % 27.6 % (8-40); MCH 24.9 pg (25.7-33.7); MCHC 31.6 g/dl (32.0-35.9); MEAN CELL VOLUME 78.9 fl (80-96); MEAN PLT VOLUME 7.4 fl (7.5-11.1); MONO % 9.9 % (3.8-10.2); NEUT % 56.3 % (42.8-82.8); PLATELET COUNT 158 10^3/uL (134-434); RDW 22.5 % (11.9-15.9)
[2021-02-21 08:32] LABS: ALBUMIN 2.8 g/dl (3.4-5.0); MAGNESIUM 1.8 mg/dL (1.8-2.4)
[2021-02-21 08:36] LABS: CREATININE 0.8 mg/dL (0.55-1.3)
[2021-02-21 08:37] LABS: BILIRUBIN,TOTAL 0.3 mg/dL (0.2-1); BLOOD UREA NITROGEN 15.7 mg/dL (7-18); TOT PROT 6.8 g/dl (6.4-8.2)
[2021-02-21] MEDS: LISINOPRIL 20 MG TABLET PO SCH (10:42)
[2021-02-21] MEDS: SULFAMETHOXAZOLE/TRIMETHOPRIM 800MG/160MG D.S. TABLET PO SCH (10:42)
[2021-02-21] MEDS: DOCUSATE SODIUM 100 MG CAPSULE (FP) PO PRN (10:42)
[2021-02-21] MEDS: POLYETHYLENE GLYCOL (HEALTHYLAX) 3350 17 GM PACKET PO SCH (10:43)
[2021-02-21] MEDS: cloNIDine HCL 0.1 MG TABLET PO SCH (10:43)
[2021-02-21] MEDS: BICTEGRAV/EMTRICIT/TENOFOV (BIKTARVY) 50-200-25 MG TABLET PO SCH (10:43)
[2021-02-21] MEDS: ENOXAPARIN NA (PORCINE) 40 MG/0.4 ML DISP.SYRIN SQ SCH (10:43)
[2021-02-21 14:46] VITALS: BP 144/63; PULSE 66; TEMP 98.7
[2021-02-21] MEDS ORDERED: SULFAMETHOXAZOLE/TRIMETHOPRIM 800MG/160MG D.S. TABLET PO SCH (22:00)
== END 2021-02-21 16:56 | disposition other institution (70) | DRG 383 ==
LOC: JER 14:38 → JERBED 18:53 → J7W 02-15 00:48
PROVIDERS: ADMIT Internal Medicine; ATTEND Student in an Organized Health Care Education/Training Program
PROC: HZ91ZZZ Pharmacotherapy for Substance Abuse Treatment, Methadone Maintenance (ICD-10-PCS; principal; 2021-02-20)
PROC: 0Y9N0ZX Drainage of Left Foot, Open Approach, Diagnostic (ICD-10-PCS; 2021-02-20)
DX: L02.612 Cutaneous abscess of left foot (principal); L03.115 Cellulitis of right lower limb; F11.20 Opioid dependence, uncomplicated; Z20.7 Contact with and (suspected) exposure to pediculosis, acariasis and other infestations; Z21 Asymptomatic human immunodeficiency virus [HIV] infection status; D64.9 Anemia, unspecified; F17.210 Nicotine dependence, cigarettes, uncomplicated; E11.621 Type 2 diabetes mellitus with foot ulcer; C85.90 Non-Hodgkin lymphoma, unspecified, unspecified site
CPT/HCPCS: 36415; 36430; 73630-TC-RT-FY; 73718-TC-RT; 80053; 81003; 82728; 82962; 83540; 83550; 83615; 83735; 84100; 85025; 85027; 85045; 85651; 86140; 86359; 86360; 86850; 86900; 86901; 86922; 87040; 87070; 87086; 87186; 87205; 87536; 88304-TC; 93005; 93010; 99285-25; C9803; J0131; J0735; P9058; U0003; U0005

== ENCOUNTER 2021-02-21 17:22 | Inpatient (IN) | payer OTHER ==
[2021-02-21 18:19] VITALS: BMI 24.2
[2021-02-21] MEDS ORDERED: MAGNESIUM CITRATE 300 ML BOTTLE PO PRN (21:55)
[2021-02-21] MEDS ORDERED: MAGNESIUM HYDROX 2400MG/30ML ORAL SUSPENSION 30 ML CUP PO PRN (21:55)
[2021-02-21] MEDS ORDERED: guaiFENesin 200 MG/10 ML 10 ML UNIT-DOSE CUPS PO PRN (21:55)
[2021-02-21] MEDS ORDERED: ACETAMINOPHEN 325 MG TABLET (FP) PO PRN (21:55)
[2021-02-21] MEDS ORDERED: LOPERAMIDE HCL 2 MG CAPSULE PO PRN (21:55)
[2021-02-21] MEDS ORDERED: IBUPROFEN 400 MG TABLET (FP) PO PRN (21:55)
[2021-02-21] MEDS ORDERED: MAG HYDROX/AL HYDROX/SIMETH 30 ML UNIT-DOSE CUP PO PRN (21:55)
[2021-02-21] MEDS ORDERED: P-EPHED 60MG/TRIPROLIDI 2.5MG TABLET PO PRN (21:55)
[2021-02-21] MEDS ORDERED: SULFAMETHOXAZOLE/TRIMETHOPRIM 800MG/160MG D.S. TABLET PO SCH (22:00)
[2021-02-21] MEDS ORDERED: ALBUTEROL SO4 HFA INHALER IH PRN (22:00)
[2021-02-21] MEDS: THIAMINE HCL 100 MG TABLET (FP) PO SCH (22:54)
[2021-02-21] MEDS: hydrOXYzine PAMOATE 25 MG CAPSULE (FP) PO SCH (22:55)
[2021-02-21] MEDS: MELATONIN 5 MG TABLETS PO SCH (22:56)
[2021-02-22] MEDS: SULFAMETHOXAZOLE/TRIMETHOPRIM 800MG/160MG D.S. TABLET PO SCH ×2 (06:40→17:33)
[2021-02-22] MEDS: hydrOXYzine PAMOATE 25 MG CAPSULE (FP) PO SCH (06:40)
[2021-02-22] MEDS ORDERED: hydrOXYzine PAMOATE 25 MG CAPSULE (FP) PO PRN (08:52)
[2021-02-22] MEDS: PRENATAL VITAMINS W/ FOLIC ACID TABLET (FP) PO SCH (10:41)
[2021-02-22] MEDS: NICOTINE 21 MG/24 HOURS TOPICAL PATCH TD SCH (10:41)
[2021-02-22] MEDS: NICOTINE POLACRILEX 2 MG GUM BC PRN ×2 (10:41→22:06)
[2021-02-22] MEDS: LISINOPRIL 20 MG TABLET PO SCH (10:41)
[2021-02-22] MEDS: METHADONE HCL 40 MG DISPERSABLE TABLET PO SCH (10:42)
[2021-02-22] MEDS: NICOTINE 7 MG/24 HOURS TOPICAL PATCH TD SCH (10:42)
[2021-02-22 14:28] LABS: EPI CELLS >36 /uL (0-25.1); HYALINE CASTS 3 /uL (0-3.1); PH,URINE 8.5 (5.0-8.0); URINE APPEARANCE CLEAR; URINE BACTERIA 61 /uL (0-1359); URINE BILIRUBIN NEGATIVE (NEGATIVE); URINE COLOR YELLOW; URINE GLUCOSE (UA) NEGATIVE (NEGATIVE); URINE KETONE NEGATIVE (NEGATIVE); URINE LEUK ESTERASE 2+ (NEGATIVE); URINE NITRITE NEGATIVE (NEGATIVE); URINE PROTEIN TRACE (NEGATIVE); URINE RBC 28 /uL (0-23.9); URINE WBC 382 /uL (0-25.8)
[2021-02-22] MEDS ORDERED: QUEtiapine FUMARATE 400 MG TABLET PO SCH (22:00)
[2021-02-22] MEDS: THIAMINE HCL 100 MG TABLET (FP) PO SCH (22:02)
[2021-02-22] MEDS: MELATONIN 5 MG TABLETS PO SCH (22:03)
[2021-02-22] MEDS: QUEtiapine FUMARATE 400 MG TABLET PO SCH (22:03)
[2021-02-23] MEDS: SULFAMETHOXAZOLE/TRIMETHOPRIM 800MG/160MG D.S. TABLET PO SCH ×2 (06:43→19:12)
[2021-02-23] MEDS: METHADONE HCL 40 MG DISPERSABLE TABLET PO SCH (06:43)
[2021-02-23] MEDS: LISINOPRIL 20 MG TABLET PO SCH (10:36)
[2021-02-23] MEDS: NICOTINE 21 MG/24 HOURS TOPICAL PATCH TD SCH (10:36)
[2021-02-23] MEDS: NICOTINE 7 MG/24 HOURS TOPICAL PATCH TD SCH (10:36)
[2021-02-23] MEDS: PRENATAL VITAMINS W/ FOLIC ACID TABLET (FP) PO SCH (10:36)
[2021-02-23] MEDS: NICOTINE POLACRILEX 2 MG GUM BC PRN ×2 (10:41→16:03)
[2021-02-23] MEDS: THIAMINE HCL 100 MG TABLET (FP) PO SCH (22:07)
[2021-02-23] MEDS: MELATONIN 5 MG TABLETS PO SCH (22:07)
[2021-02-23] MEDS ORDERED: QUEtiapine FUMARATE 100 MG TABLET (FP) PO SCH (22:18)
[2021-02-23] MEDS: QUEtiapine FUMARATE 400 MG TABLET PO SCH (22:23)
[2021-02-24] MEDS: SULFAMETHOXAZOLE/TRIMETHOPRIM 800MG/160MG D.S. TABLET PO SCH ×2 (06:32→17:26)
[2021-02-24] MEDS: METHADONE HCL 40 MG DISPERSABLE TABLET PO SCH (06:32)
[2021-02-24] MEDS: NICOTINE 7 MG/24 HOURS TOPICAL PATCH TD SCH (10:35)
[2021-02-24] MEDS: NICOTINE 21 MG/24 HOURS TOPICAL PATCH TD SCH (10:35)
[2021-02-24] MEDS: LISINOPRIL 20 MG TABLET PO SCH (10:36)
[2021-02-24] MEDS: PRENATAL VITAMINS W/ FOLIC ACID TABLET (FP) PO SCH (10:36)
[2021-02-24] MEDS: NICOTINE POLACRILEX 2 MG GUM BC PRN ×4 (10:40→21:34)
[2021-02-24 17:20] LABS: HEMATOCRIT 27.6 % (35.4-49); HEMOGLOBIN 8.7 GM/dL (11.7-16.9); MCH 24.7 pg (25.7-33.7); MCHC 31.4 g/dl (32.0-35.9); MEAN CELL VOLUME 78.6 fl (80-96); MEAN PLT VOLUME 7.8 fl (7.5-11.1); PLATELET COUNT 193 10^3/uL (134-434); RDW 22.7 % (11.9-15.9); WHITE BLOOD COUNT 3.8 K/mm3 (4.0-10.0)
[2021-02-24 17:24] LABS: BLOOD UREA NITROGEN 21.3 mg/dL (7-18)
[2021-02-24] MEDS: FERROUS SO4 325 MG TABLET (FP) PO SCH (17:26)
[2021-02-24 17:27] LABS: CREATININE 1.2 mg/dL (0.55-1.3)
[2021-02-24 17:32] LABS: EPI CELLS >36 /uL (0-25.1); HYALINE CASTS 1 /uL (0-3.1); PH,URINE 6.5 (5.0-8.0); URINE APPEARANCE CLOUDY; URINE BACTERIA 1431 /uL (0-1359); URINE BILIRUBIN NEGATIVE (NEGATIVE); URINE COLOR YELLOW; URINE GLUCOSE (UA) NEGATIVE (NEGATIVE); URINE KETONE NEGATIVE (NEGATIVE); URINE LEUK ESTERASE 3+ (NEGATIVE); URINE NITRITE NEGATIVE (NEGATIVE); URINE PROTEIN NEGATIVE (NEGATIVE); URINE RBC 20 /uL (0-23.9); URINE WBC 293 /uL (0-25.8)
[2021-02-24 17:41] LABS: BILIRUBIN,TOTAL 0.3 mg/dL (0.2-1)
[2021-02-24 18:28] LABS: ALBUMIN 3.4 g/dl (3.4-5.0)
[2021-02-24] MEDS: MELATONIN 5 MG TABLETS PO SCH (21:33)
[2021-02-24] MEDS: THIAMINE HCL 100 MG TABLET (FP) PO SCH (21:33)
[2021-02-25] MEDS: METHADONE HCL 40 MG DISPERSABLE TABLET PO SCH (06:48)
[2021-02-25] MEDS: SULFAMETHOXAZOLE/TRIMETHOPRIM 800MG/160MG D.S. TABLET PO SCH (06:48)
[2021-02-25] MEDS: FERROUS SO4 325 MG TABLET (FP) PO SCH ×2 (07:15→17:55)
[2021-02-25] MEDS: PRENATAL VITAMINS W/ FOLIC ACID TABLET (FP) PO SCH (09:25)
[2021-02-25] MEDS: NICOTINE POLACRILEX 2 MG GUM BC PRN ×4 (09:25→21:27)
[2021-02-25] MEDS: NICOTINE 7 MG/24 HOURS TOPICAL PATCH TD SCH (09:25)
[2021-02-25] MEDS: LISINOPRIL 20 MG TABLET PO SCH (09:25)
[2021-02-25] MEDS: NICOTINE 21 MG/24 HOURS TOPICAL PATCH TD SCH (09:25)
[2021-02-25] MEDS: MELATONIN 5 MG TABLETS PO SCH (21:26)
[2021-02-25] MEDS: THIAMINE HCL 100 MG TABLET (FP) PO SCH (21:26)
[2021-02-25] MEDS ORDERED: QUEtiapine FUMARATE 100 MG TABLET (FP) ONE (21:27)
[2021-02-25] MEDS: QUEtiapine FUMARATE 300 MG TABLET PO SCH (21:27)
[2021-02-25] MEDS: HYDROCORTISONE 0.5% TOPICAL CREAM 30 GM TUBE TP PRN (21:40)
[2021-02-26] MEDS: METHADONE HCL 40 MG DISPERSABLE TABLET PO SCH (06:13)
[2021-02-26] MEDS: NICOTINE POLACRILEX 2 MG GUM BC PRN ×4 (06:15→21:28)
[2021-02-26] MEDS: FERROUS SO4 325 MG TABLET (FP) PO SCH ×2 (07:06→17:06)
[2021-02-26] MEDS: PRENATAL VITAMINS W/ FOLIC ACID TABLET (FP) PO SCH (09:49)
[2021-02-26] MEDS: SULFAMETHOXAZOLE/TRIMETHOPRIM 800MG/160MG D.S. TABLET PO SCH (09:50)
[2021-02-26] MEDS: HYDROCORTISONE 0.5% TOPICAL CREAM 30 GM TUBE TP PRN ×2 (09:50→21:28)
[2021-02-26] MEDS: NICOTINE 7 MG/24 HOURS TOPICAL PATCH TD SCH (09:50)
[2021-02-26] MEDS: NICOTINE 21 MG/24 HOURS TOPICAL PATCH TD SCH (09:50)
[2021-02-26] MEDS: LISINOPRIL 10 MG TABLET PO SCH (09:50)
[2021-02-26] MEDS ORDERED: amLODIPine BESYLATE 5 MG TABLET (FP) PO SCH (10:00)
[2021-02-26 10:44] LABS: BLOOD UREA NITROGEN 36.3 mg/dL (7-18); CALCIUM 8.9 mg/dL (8.5-10.1)
[2021-02-26 10:48] LABS: CREATININE 1.3 mg/dL (0.55-1.3)
[2021-02-26] MEDS ORDERED: QUEtiapine FUMARATE 100 MG TABLET (FP) ONE (19:05)
[2021-02-26] MEDS: QUEtiapine FUMARATE 300 MG TABLET PO SCH (21:26)
[2021-02-26] MEDS: THIAMINE HCL 100 MG TABLET (FP) PO SCH (21:26)
[2021-02-26] MEDS: MELATONIN 5 MG TABLETS PO SCH (21:26)
[2021-02-27] MEDS: METHADONE HCL 40 MG DISPERSABLE TABLET PO SCH (06:19)
[2021-02-27] MEDS: NICOTINE POLACRILEX 2 MG GUM BC PRN ×4 (06:22→21:19)
[2021-02-27] MEDS: FERROUS SO4 325 MG TABLET (FP) PO SCH ×2 (07:04→17:42)
[2021-02-27] MEDS: LISINOPRIL 10 MG TABLET PO SCH (09:26)
[2021-02-27] MEDS: NICOTINE 7 MG/24 HOURS TOPICAL PATCH TD SCH (09:26)
[2021-02-27] MEDS: NICOTINE 21 MG/24 HOURS TOPICAL PATCH TD SCH (09:26)
[2021-02-27] MEDS: PRENATAL VITAMINS W/ FOLIC ACID TABLET (FP) PO SCH (09:26)
[2021-02-27] MEDS ORDERED: QUEtiapine FUMARATE 100 MG TABLET (FP) ONE (18:54)
[2021-02-27] MEDS: QUEtiapine FUMARATE 300 MG TABLET PO SCH (21:18)
[2021-02-27] MEDS: THIAMINE HCL 100 MG TABLET (FP) PO SCH (21:18)
[2021-02-27] MEDS: MELATONIN 5 MG TABLETS PO SCH (21:18)
[2021-02-27] MEDS: HYDROCORTISONE 0.5% TOPICAL CREAM 30 GM TUBE TP PRN (21:19)
[2021-02-28] MEDS: METHADONE HCL 40 MG DISPERSABLE TABLET PO SCH (06:35)
[2021-02-28] MEDS: NICOTINE POLACRILEX 2 MG GUM BC PRN ×4 (06:37→21:20)
[2021-02-28] MEDS: FERROUS SO4 325 MG TABLET (FP) PO SCH ×2 (07:13→17:44)
[2021-02-28] MEDS: PRENATAL VITAMINS W/ FOLIC ACID TABLET (FP) PO SCH (09:46)
[2021-02-28] MEDS: LISINOPRIL 10 MG TABLET PO SCH (09:46)
[2021-02-28] MEDS: SULFAMETHOXAZOLE/TRIMETHOPRIM 800MG/160MG D.S. TABLET PO SCH (09:46)
[2021-02-28] MEDS: NICOTINE 7 MG/24 HOURS TOPICAL PATCH TD SCH (09:47)
[2021-02-28] MEDS: NICOTINE 21 MG/24 HOURS TOPICAL PATCH TD SCH (09:47)
[2021-02-28] MEDS ORDERED: QUEtiapine FUMARATE 100 MG TABLET (FP) ONE (19:08)
[2021-02-28] MEDS: HYDROCORTISONE 0.5% TOPICAL CREAM 30 GM TUBE TP PRN (21:19)
[2021-02-28] MEDS: THIAMINE HCL 100 MG TABLET (FP) PO SCH (21:19)
[2021-02-28] MEDS: QUEtiapine FUMARATE 300 MG TABLET PO SCH (21:19)
[2021-02-28] MEDS: MELATONIN 5 MG TABLETS PO SCH (21:19)
[2021-03-01] MEDS: METHADONE HCL 40 MG DISPERSABLE TABLET PO SCH (07:02)
[2021-03-01] MEDS: FERROUS SO4 325 MG TABLET (FP) PO SCH ×2 (07:03→17:23)
[2021-03-01] MEDS: NICOTINE POLACRILEX 2 MG GUM BC PRN ×3 (07:05→21:34)
[2021-03-01] MEDS: PRENATAL VITAMINS W/ FOLIC ACID TABLET (FP) PO SCH (10:39)
[2021-03-01] MEDS: LISINOPRIL 10 MG TABLET PO SCH (10:40)
[2021-03-01] MEDS: NICOTINE 21 MG/24 HOURS TOPICAL PATCH TD SCH (10:41)
[2021-03-01] MEDS: NICOTINE 7 MG/24 HOURS TOPICAL PATCH TD SCH (10:41)
[2021-03-01] MEDS ORDERED: QUEtiapine FUMARATE 100 MG TABLET (FP) ONE (19:16)
[2021-03-01] MEDS: MELATONIN 5 MG TABLETS PO SCH (21:33)
[2021-03-01] MEDS: THIAMINE HCL 100 MG TABLET (FP) PO SCH (21:33)
[2021-03-01] MEDS: QUEtiapine FUMARATE 300 MG TABLET PO SCH (21:33)
[2021-03-02] MEDS: METHADONE HCL 40 MG DISPERSABLE TABLET PO SCH (06:49)
[2021-03-02] MEDS: NICOTINE POLACRILEX 2 MG GUM BC PRN ×4 (06:51→21:20)
[2021-03-02] MEDS: FERROUS SO4 325 MG TABLET (FP) PO SCH ×2 (07:02→18:01)
[2021-03-02] MEDS: PRENATAL VITAMINS W/ FOLIC ACID TABLET (FP) PO SCH (09:57)
[2021-03-02] MEDS: LISINOPRIL 10 MG TABLET PO SCH (09:57)
[2021-03-02] MEDS: NICOTINE 21 MG/24 HOURS TOPICAL PATCH TD SCH (09:57)
[2021-03-02] MEDS: NICOTINE 7 MG/24 HOURS TOPICAL PATCH TD SCH (10:13)
[2021-03-02] MEDS ORDERED: QUEtiapine FUMARATE 100 MG TABLET (FP) ONE (20:05)
[2021-03-02] MEDS: MELATONIN 5 MG TABLETS PO SCH (21:18)
[2021-03-02] MEDS: THIAMINE HCL 100 MG TABLET (FP) PO SCH (21:18)
[2021-03-02] MEDS: QUEtiapine FUMARATE 300 MG TABLET PO SCH (21:18)
[2021-03-03] MEDS: METHADONE HCL 40 MG DISPERSABLE TABLET PO SCH (06:39)
[2021-03-03] MEDS: NICOTINE POLACRILEX 2 MG GUM BC PRN ×3 (06:40→21:24)
[2021-03-03] MEDS: FERROUS SO4 325 MG TABLET (FP) PO SCH ×2 (07:01→18:24)
[2021-03-03] MEDS: PRENATAL VITAMINS W/ FOLIC ACID TABLET (FP) PO SCH (10:17)
[2021-03-03] MEDS: LISINOPRIL 10 MG TABLET PO SCH (10:17)
[2021-03-03] MEDS: SULFAMETHOXAZOLE/TRIMETHOPRIM 800MG/160MG D.S. TABLET PO SCH (10:17)
[2021-03-03] MEDS: NICOTINE 21 MG/24 HOURS TOPICAL PATCH TD SCH (10:18)
[2021-03-03] MEDS: NICOTINE 7 MG/24 HOURS TOPICAL PATCH TD SCH (10:18)
[2021-03-03] MEDS ORDERED: QUEtiapine FUMARATE 100 MG TABLET (FP) ONE (18:48)
[2021-03-03] MEDS: THIAMINE HCL 100 MG TABLET (FP) PO SCH (21:23)
[2021-03-03] MEDS: MELATONIN 5 MG TABLETS PO SCH (21:23)
[2021-03-03] MEDS: QUEtiapine FUMARATE 300 MG TABLET PO SCH (21:23)
[2021-03-04] MEDS: NICOTINE POLACRILEX 2 MG GUM BC PRN ×4 (06:40→21:17)
[2021-03-04] MEDS: METHADONE HCL 40 MG DISPERSABLE TABLET PO SCH (06:40)
[2021-03-04] MEDS: FERROUS SO4 325 MG TABLET (FP) PO SCH ×2 (07:05→17:23)
[2021-03-04] MEDS: PRENATAL VITAMINS W/ FOLIC ACID TABLET (FP) PO SCH (09:49)
[2021-03-04] MEDS: LISINOPRIL 10 MG TABLET PO SCH (09:49)
[2021-03-04] MEDS: NICOTINE 7 MG/24 HOURS TOPICAL PATCH TD SCH (09:50)
[2021-03-04] MEDS: NICOTINE 21 MG/24 HOURS TOPICAL PATCH TD SCH (09:51)
[2021-03-04] MEDS: MELATONIN 5 MG TABLETS PO SCH (21:17)
[2021-03-04] MEDS: QUEtiapine FUMARATE 300 MG TABLET PO SCH (21:17)
[2021-03-04] MEDS: THIAMINE HCL 100 MG TABLET (FP) PO SCH (21:17)
[2021-03-05] MEDS: METHADONE HCL 40 MG DISPERSABLE TABLET PO SCH (07:03)
[2021-03-05] MEDS: FERROUS SO4 325 MG TABLET (FP) PO SCH ×2 (07:03→18:11)
[2021-03-05] MEDS: NICOTINE POLACRILEX 2 MG GUM BC PRN ×4 (07:05→21:21)
[2021-03-05] MEDS: LISINOPRIL 10 MG TABLET PO SCH (10:08)
[2021-03-05] MEDS: PRENATAL VITAMINS W/ FOLIC ACID TABLET (FP) PO SCH (10:08)
[2021-03-05] MEDS: SULFAMETHOXAZOLE/TRIMETHOPRIM 800MG/160MG D.S. TABLET PO SCH (10:08)
[2021-03-05] MEDS: NICOTINE 21 MG/24 HOURS TOPICAL PATCH TD SCH (10:09)
[2021-03-05] MEDS: NICOTINE 7 MG/24 HOURS TOPICAL PATCH TD SCH (10:21)
[2021-03-05] MEDS ORDERED: QUEtiapine FUMARATE 100 MG TABLET (FP) ONE (19:03)
[2021-03-05] MEDS: HYDROCORTISONE 0.5% TOPICAL CREAM 30 GM TUBE TP PRN (21:20)
[2021-03-05] MEDS: QUEtiapine FUMARATE 300 MG TABLET PO SCH (21:20)
[2021-03-05] MEDS: MELATONIN 5 MG TABLETS PO SCH (21:20)
[2021-03-05] MEDS: THIAMINE HCL 100 MG TABLET (FP) PO SCH (21:20)
[2021-03-06] MEDS: METHADONE HCL 40 MG DISPERSABLE TABLET PO SCH (06:23)
[2021-03-06] MEDS: HYDROCORTISONE 0.5% TOPICAL CREAM 30 GM TUBE TP PRN ×3 (06:24→21:32)
[2021-03-06] MEDS: NICOTINE POLACRILEX 2 MG GUM BC PRN ×4 (06:26→21:33)
[2021-03-06] MEDS: FERROUS SO4 325 MG TABLET (FP) PO SCH ×2 (07:04→17:20)
[2021-03-06 07:21] VITALS: BP 112/60; PULSE 80; TEMP 97.8
[2021-03-06] MEDS: LISINOPRIL 10 MG TABLET PO SCH (09:50)
[2021-03-06] MEDS: PRENATAL VITAMINS W/ FOLIC ACID TABLET (FP) PO SCH (09:50)
[2021-03-06] MEDS: NICOTINE 7 MG/24 HOURS TOPICAL PATCH TD SCH (09:51)
[2021-03-06] MEDS: NICOTINE 21 MG/24 HOURS TOPICAL PATCH TD SCH (09:51)
[2021-03-06] MEDS ORDERED: QUEtiapine FUMARATE 100 MG TABLET (FP) ONE (20:21)
[2021-03-06] MEDS: MELATONIN 5 MG TABLETS PO SCH (21:31)
[2021-03-06] MEDS: QUEtiapine FUMARATE 300 MG TABLET PO SCH (21:31)
[2021-03-06] MEDS: THIAMINE HCL 100 MG TABLET (FP) PO SCH (21:31)
[2021-03-07] MEDS: METHADONE HCL 40 MG DISPERSABLE TABLET PO SCH (06:57)
[2021-03-07] MEDS: HYDROCORTISONE 0.5% TOPICAL CREAM 30 GM TUBE TP PRN (06:59)
[2021-03-07] MEDS: NICOTINE POLACRILEX 2 MG GUM BC PRN (06:59)
[2021-03-07] MEDS: FERROUS SO4 325 MG TABLET (FP) PO SCH (07:07)
== END 2021-03-07 10:18 | disposition home or self-care (01) | DRG 772 ==
LOC: YASAS 17:22 → Y3W 20:22
PROVIDERS: ADMIT Allergy & Immunology; ATTEND Allergy & Immunology
PROC: HZ42ZZZ Group Counseling for Substance Abuse Treatment, Cognitive-Behavioral (ICD-10-PCS; principal; 2021-02-21)
DX: F10.20 Alcohol dependence, uncomplicated (principal); F11.20 Opioid dependence, uncomplicated; F14.10 Cocaine abuse, uncomplicated; F17.210 Nicotine dependence, cigarettes, uncomplicated; F31.9 Bipolar disorder, unspecified; F64.0 Transsexualism; Z21 Asymptomatic human immunodeficiency virus [HIV] infection status; G62.9 Polyneuropathy, unspecified; D64.9 Anemia, unspecified; G47.00 Insomnia, unspecified; I10 Essential (primary) hypertension; J44.9 Chronic obstructive pulmonary disease, unspecified; L03.115 Cellulitis of right lower limb; L02.612 Cutaneous abscess of left foot; B88.8 Other specified infestations; Z86.16 Personal history of COVID-19
CPT/HCPCS: 36415; 80048; 80053; 81003; 85027; 86593; 86780